=== PATIENT | female | born 1995 | race Hispanic/Latino ===

== ENCOUNTER 2018-06-08 14:17 | Emergency (ER) | payer MEDICAID, OTHER ==
[2018-06-08 14:28] VITALS: BMI 31.4
[2018-06-08 14:29] VITALS: O2SAT 98
[2018-06-08] MEDS ORDERED: Ciprofloxacin 0.3% OPTH SOLN OS STA (14:52)
--- NOTE | 2018-06-08 14:56 | ED PDOC ---
Arrival/HPI - General Chief Complaint: Eye Problem Time Seen by Provider: 06/08/18 14:38 Historian: Patient - History of Present Illness Narrative History of Present Illness (Text): 06/08/18 14:43 A 23 year old female with no significant past medical history, presents to the emergency department with a complaint of left eye discomfort. Patient notes she was at work when something flew into her eye about 20- 30 minutes ago. She reports that she can not keep her eye open because she feels like there is something in her eye. The nurse at her job gave her an eye wash to use, but was sent into the emergency department for further evaluation. The patient denies contact lens use, visual changes, headache, dizziness, or any other complaint. 06/09/18 18:01 Time/Duration: 1/2 hour Symptom Onset: Sudden Symptom Course: Unchanged Activities at Onset: Rest, Light Context: Work Past Medical History - Provider Review Nursing Documentation Reviewed: Yes - Past History Past History: No Previous - Infectious Disease Hx of Infectious Diseases: None - Cardiac Hx Cardiac Disorders: No - Pulmonary Hx Respiratory Disorders: No - Neurological Hx Neurological Disorder: No - HEENT Hx HEENT Disorder: No - Renal Hx Renal Disorder: No - Endocrine/Metabolic Hx Endocrine Disorders: No - Hematological/Oncological Hx Blood Disorders: No - Integumentary Hx Dermatological Disorder: No - Musculoskeletal/Rheumatological Hx Musculoskeletal Disorders: No - Gastrointestinal Hx Gastrointestinal Disorders: No - Genitourinary/Gynecological Hx Genitourinary Disorders: No - Psychiatric Hx Psychophysiologic Disorder: Yes Hx Depression: Yes Hx Substance Use: No - Anesthesia Hx Anesthesia: No Hx Anesthesia Reactions: No Hx Malignant Hyperthermia: No - Suicidal Assessment Feels Threatened In Home Enviroment: No Family/Social History - Physician Review Nursing Documentation Reviewed: Yes Family/Social History: No Known Family HX Smoking Status: Never Smoked Hx Alcohol Use: No Hx Substance Use: No Hx Substance Use Treatment: No Allergies/Home Meds Allergies/Adverse Reactions: Allergies No Known Allergies Allergy (Verified 06/08/18 14:27) Review of Systems - Physician Review All systems were reviewed & negative as marked: Yes - Review of Systems Eyes: Eye Pain. absent: Vision Changes Neurological: absent: Headache, Dizziness Physical Exam Vital Signs Reviewed: Yes Vital Signs Temp Pulse Resp BP Pulse Ox 06/08/18 14:28 98.4 F 102 H 17 136/86 98 Temperature: Afebrile Blood Pressure: Normal Pulse: Tachycardic Respiratory Rate: Normal Appearance: Positive for: Well-Appearing, Non-Toxic, Comfortable Pain Distress: None Mental Status: Positive for: Alert and Oriented X 3 - Systems Exam Head: Present: Atraumatic, Normocephalic, Other (Left eye: No debri in lashes. Normal skin surrounding eye. Flipped the lid, no foreign body visualized. Corneal abrasion. Flourescein uptake at the 9 o'clock position. ) Pupils: Present: PERRL Extroacular Muscles: Present: EOMI Conjunctiva: Present: Injected Medical Decision Making ED Course and Treatment: 06/08/18 15:02 Impression: A 23 year old female presents to the emergency department for further evaluation of left eye discomfort in aye after something flew into her eye at work. Plan: -- Flourescein Stain -- Ciloxan -- Reassess and disposition Prior Visits: Notes and results from previous visits were reviewed. Progress Notes: Patient is in no acute distress. I have discussed the results and plan with the patient, who expresses understanding. Patient in agreement with plan to be discharged home. Patient is stable for discharge. Patient was instructed to follow up with physician or return if symptoms worsen or new concerning symptoms arise. - Scribe Statement The provider has reviewed the documentation as recorded by the Scribe Valentina Ricci Provider Scribe Attestation: All medical record entries made by the Scribe were at my direction and personally dictated by me. I have reviewed the chart and agree that the record accurately reflects my personal performance of the history, physical exam, medical decision making, and the department course for this patient. I have also personally directed, reviewed, and agree with the discharge instructions and disposition. Disposition/Present on Arrival - Present on Arrival Any Indicators Present on Arrival: No History of DVT/PE: No History of Uncontrolled Diabetes: No Urinary Catheter: No History of Decub. Ulcer: No History Surgical Site Infection Following: None - Disposition Have Diagnosis and Disposition been Completed?: Yes Diagnosis: Corneal abrasion, left Disposition: HOME/ ROUTINE Disposition Time: 15:07 Patient Plan: Discharge Condition: GOOD Discharge Instructions (ExitCare): Corneal Abrasion (DC) Additional Instructions: BOUCHRA ATWOOD, thank you for letting us take care of you today. Your provider was Mirta Quigley MD and you were treated for LEFT EYE PAIN. The emergency medical care you received today was directed at your acute symptoms. If you were prescribed any medication, please fill it and take as directed. It may take several days for your symptoms to resolve. Return to the Emergency Department if your symptoms worsen, do not improve, or if you have any other problems. Please contact your doctor or call one of the physicians/clinics you have been referred to that are listed on the Patient Visit Information form that is inclu ded in your discharge packet. Bring any paperwork you were given at discharge with you along with any medications you are taking to your follow up visit. Our treatment cannot replace ongoing medical care by a primary care provider outside of the emergency department. Thank you for allowing the [facility] team to be part of your care today. If you had an X-Ray or CT scan: A Radiologist will review the ED reading if any change in treatment is needed we will contact you. If you had a blood, urine, or wound culture: It will take several days for the results, if any change in treatment is needed we will contact you. If you had an STI test: It will take 48 hours for the results. Please call after 1 week if you have not heard back. Prescriptions: RX: Ciprofloxacin 0.3% [Ciloxan 0.3% Ophth SOLN] 2 drop LEFTEYE Q2H #1 bottle Referrals: [facility] [Outside] - Follow up with primary [facility] [place] [Outside] - Follow up with primary Forms: [employer] (Arabic)
[2018-06-08 16:11] VITALS: BP 110/80; PULSE 89; RESP 14; TEMP 98
== END 2018-06-08 16:11 | disposition home or self-care (01) ==
LOC: ED 14:17
DX: S05.02XA Injury of conjunctiva and corneal abrasion without foreign body, left eye, initial encounter (principal); W22.8XXA Striking against or struck by other objects, initial encounter; Y92.89 Other specified places as the place of occurrence of the external cause; Y99.0 Civilian activity done for income or pay